=== PATIENT | male | born 1995 | race Caucasian/White ===

== ENCOUNTER 2017-01-27 17:24 | Emergency (ER) | payer SELFPAY ==
[~2017-01-27] VITALS: Ht 182.9 cm; Wt 70.5 kg
== END 2017-01-27 17:33 | disposition left against medical advice (07) ==
LOC: M ED 17:24
DX: R05 Cough (principal); Z53.29 Procedure and treatment not carried out because of patient's decision for other reasons

== ENCOUNTER → 2017-01-27 | Outpatient (REF) | payer OTHER | LOC: M LAB REF 10:24 | PROVIDERS: ATTEND Physician Assistant Medical | DX: J02.9 Acute pharyngitis, unspecified (principal) ==

== ENCOUNTER 2017-07-03 17:35 | Emergency (ER) | payer OTHER ==
[2017-07-03] MEDS: ONDANSETRON 4 MG ORAL DISINTEGRATING TAB (S0181) PO (18:30)
[2017-07-03] MEDS: IBUPROFEN 600 MG TAB PO (19:12)
[2017-07-03] MEDS: ACETAMINOPHEN 325 MG TAB PO (19:13)
== END 2017-07-03 19:58 | disposition home or self-care (01) ==
LOC: M ED 17:35
DX: S39.002A Unspecified injury of muscle, fascia and tendon of lower back, initial encounter (principal); S06.0X0A Concussion without loss of consciousness, initial encounter; S46.911A Strain of unspecified muscle, fascia and tendon at shoulder and upper arm level, right arm, initial encounter; V44.6XXA Car passenger injured in collision with heavy transport vehicle or bus in traffic accident, initial encounter; Y92.410 Unspecified street and highway as the place of occurrence of the external cause; M51.36 Other intervertebral disc degeneration, lumbar region
CPT/HCPCS: 72110

== ENCOUNTER 2018-05-25 16:53 | Emergency (ER) | payer OTHER ==
[~2018-05-25] VITALS: Ht 182.9 cm; Wt 79.5 kg
[~2018-05-25 16:53] MED LIST: NAPR-50 PO; TYLE500T78 PO; ZOFR4TAB14 PO
[2018-05-25] MEDS ORDERED: MELO15TA28 (17:05)
[2018-05-25] MEDS ORDERED: ACET1TAB55 (17:05)
[2018-05-25] MEDS ORDERED: KETOROLAC 30 MG/ML VIAL (J1885) IV ONE (17:30)
[2018-05-25] MEDS ORDERED: ISOVUE-370 76% 100ML VIAL (Q9967) As Ordered ONE (17:34)
[2018-05-25 18:00] LABS: BASO % 0.3 % (0.0-1.0); EOS # 0.1 10^3/uL (0.0-0.50); EOS % 0.5 % (0.0-3.0); HEMATOCRIT 47.2 % (42.0-52.0); HEMOGLOBIN 16.3 g/dl (13.5-17.5); LYMPH # 1.5 10^3/uL (1.5-6.5); LYMPH % 15.9 % (24.0-44.0); MEAN CORPUSCULAR HEMOGLOBIN 30.1 pg (27.0-33.0); MEAN CORPUSCULAR HGB CONC 34.5 g/dl (32.0-36.5); MEAN CORPUSCULAR VOLUME 87.2 fl (80.0-96.0); MONO # 0.8 10^3/uL (0.0-0.8); NEUTROPHILS # 7.3 10^3/uL (1.8-7.7); NEUTROPHILS % 74.7 % (36.0-66.0); PLATELET COUNT, AUTOMATED 284 10^3/uL (150-450); RED BLOOD COUNT 5.41 10^6/uL (4.30-6.10); WHITE BLOOD COUNT 9.7 10^3/uL (4.0-10.0)
[2018-05-25 18:32] LABS: BLOOD UREA NITROGEN 15 MG/DL (7-18); CALCIUM LEVEL 9.1 MG/DL (8.5-10.1); CARBON DIOXIDE LEVEL 27 MEQ/L (21-32); CHLORIDE LEVEL 105 MEQ/L (98-107); CREATININE FOR GFR 1.22 MG/DL (0.70-1.30); GLOMERULAR FILTRATION RATE > 60.0 (>60); GLUCOSE, FASTING 91 MG/DL (70-100); POTASSIUM SERUM 4.3 MEQ/L (3.5-5.1); SODIUM LEVEL 139 MEQ/L (136-145)
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
[2018-05-25] MEDS ORDERED: traMADol 50 MG TAB (BULK 4 TAB ED) PO ONE (20:00)
[2018-05-25 20:36] VITALS: BP 126/75
== END 2018-05-25 20:38 | disposition home or self-care (01) ==
LOC: M ED 16:53
DX: S29.012A Strain of muscle and tendon of back wall of thorax, initial encounter (principal); V49.49XA Driver injured in collision with other motor vehicles in traffic accident, initial encounter; Y92.410 Unspecified street and highway as the place of occurrence of the external cause
CPT/HCPCS: 70450; 71260; 72125; 72128; 72131; 74177; 80048; 85025; 96374; 99284; J1885; Q9967

== ENCOUNTER 2018-12-02 07:41 | Inpatient (IN) | payer OTHER ==
[~2018-12-02] VITALS: Ht 185.4 cm; Wt 76.4 kg
[~2018-12-02 07:41] MED LIST changes: +ACET1TAB55; +MELO15TA28; -NAPR-50 PO; +NAPR-837 PO
[2018-12-02 08:13] LABS: HEMATOCRIT 48.8 % (42.0-52.0); HEMOGLOBIN 16.7 g/dl (13.5-17.5); MEAN CORPUSCULAR HEMOGLOBIN 30.6 pg (27.0-33.0); MEAN CORPUSCULAR HGB CONC 34.2 g/dl (32.0-36.5); MEAN CORPUSCULAR VOLUME 89.4 fl (80.0-96.0); PLATELET COUNT, AUTOMATED 225 10^3/uL (150-450); RED BLOOD COUNT 5.46 10^6/uL (4.30-6.10); WHITE BLOOD COUNT 5.7 10^3/uL (4.0-10.0)
[2018-12-02 08:33] LABS: AMPHETAMINES LEVEL URINE NEGATIVE (NEGATIVE); BARBITURATES URINE NEGATIVE (NEGATIVE); BENZODIAZEPINES URINE NEGATIVE (NEGATIVE); CANNABINOIDS URINE NEGATIVE (NEGATIVE); COCAINE METABOLITE URINE NEGATIVE (NEGATIVE); METHADONE URINE NEGATIVE (NEGATIVE); OPIATES URINE NEGATIVE (NEGATIVE); PHENCYCLIDINE URINE NEGATIVE (NEGATIVE)
[2018-12-02 08:45] LABS: ACETAMINOPHEN LEVEL < 2.0 UG/ML (10.0-30.0); ALBUMIN 4.4 GM/DL (3.2-5.2); ALT/SGPT 26 U/L (12-78); BILIRUBIN,DIRECT 0.2 MG/DL (0.0-0.2); BILIRUBIN,TOTAL 0.4 MG/DL (0.2-1.0); BLOOD UREA NITROGEN 7 MG/DL (7-18); CALCIUM LEVEL 9.1 MG/DL (8.5-10.1); CARBON DIOXIDE LEVEL 28 MEQ/L (21-32); CHLORIDE LEVEL 107 MEQ/L (98-107); CREATININE FOR GFR 1.18 MG/DL (0.70-1.30); ETHYL ALCOHOL (ETHANOL) < 0.003 % (0.000-0.010); GLOMERULAR FILTRATION RATE > 60.0 (>60); GLUCOSE, FASTING 101 MG/DL (70-100); POTASSIUM SERUM 4.1 MEQ/L (3.5-5.1); SALICYLATE LEVEL < 1.7 MG/DL (5.0-30.0); SODIUM LEVEL 141 MEQ/L (136-145)
[2018-12-02] MEDS: THIAMINE 100 MG TAB PO SCH ×2 (09:00→21:18)
[2018-12-02] MEDS ORDERED: LORazepam 2 MG TAB PO PRN (12:15)
[2018-12-02] MEDS ORDERED: ACETAMINOPHEN TAB 650MG DOSE (2X325MG) PO PRN (12:15)
[2018-12-02] MEDS ORDERED: MAALOX 30 ML SUSP *UDC PO PRN (12:15)
[2018-12-02] MEDS ORDERED: traZODone 50 MG TAB PO PRN (12:15)
[2018-12-02] MEDS ORDERED: MOM 30ML SUSPENSION UDC PO PRN (12:15)
[2018-12-02] MEDS ORDERED: NICOTINE 21MG/24HR 1 EA TRANSDERMAL TD ONE (13:00)
[2018-12-02 14:16] VITALS: BP 127/59
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
[2018-12-02] MEDS: MULTIVITAMINS/MINERALS THERAP 1 TAB PO SCH (17:39)
[2018-12-02] MEDS: FOLIC ACID 1 MG TAB PO SCH (17:39)
[2018-12-02 18:00] VITALS: BP 142/80
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
[2018-12-02 22:00] VITALS: BP 120/57
[2018-12-03 06:41] VITALS: BP 130/63
[2018-12-03 06:42] VITALS: BP 130/63
[2018-12-03] MEDS: NICOTINE 21MG/24HR 1 EA TRANSDERMAL TD SCH (08:06)
[2018-12-03] MEDS: THIAMINE 100 MG TAB PO SCH ×2 (08:06→20:33)
[2018-12-03] MEDS: FOLIC ACID 1 MG TAB PO SCH (08:06)
[2018-12-03] MEDS: MULTIVITAMINS/MINERALS THERAP 1 TAB PO SCH (08:06)
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
[2018-12-03 12:45] VITALS: BP 146/89
[2018-12-03 18:00] VITALS: BP 140/74
[2018-12-03 21:00] VITALS: BP 140/74
[2018-12-04 07:00] VITALS: BP 117/74
[2018-12-04 07:03] VITALS: BP 117/74
[2018-12-04] MEDS: MULTIVITAMINS/MINERALS THERAP 1 TAB PO SCH (08:56)
[2018-12-04] MEDS: FOLIC ACID 1 MG TAB PO SCH (08:56)
[2018-12-04] MEDS: THIAMINE 100 MG TAB PO SCH ×2 (08:56→20:49)
[2018-12-04] MEDS: NICOTINE 21MG/24HR 1 EA TRANSDERMAL TD SCH (08:57)
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
[2018-12-04 18:20] VITALS: BP 138/72
[2018-12-05 06:20] VITALS: BP 135/59
[2018-12-05] MEDS: NICOTINE 21MG/24HR 1 EA TRANSDERMAL TD SCH (08:20)
[2018-12-05] MEDS: FOLIC ACID 1 MG TAB PO SCH (08:21)
[2018-12-05] MEDS: MULTIVITAMINS/MINERALS THERAP 1 TAB PO SCH (08:21)
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
== END 2018-12-05 12:19 | disposition home or self-care (01) | DRG 881 ==
LOC: M ED 07:41 → M ED INP 12:02 → M PSY 14:19
PROVIDERS: ADMIT Psychiatry & Neurology Psychiatry; ATTEND Psychiatry & Neurology Psychiatry
DX: F43.21 Adjustment disorder with depressed mood (principal); F10.94 Alcohol use, unspecified with alcohol-induced mood disorder; F43.24 Adjustment disorder with disturbance of conduct; Z63.4 Disappearance and death of family member; M54.5 Low back pain